=== PATIENT | male | born 1950 | race Caucasian/White ===

== ENCOUNTER 2016-09-12 09:40 | Outpatient (CLI) | payer OTHER ==
[~2016-09-12 09:40] MED LIST: ACETAMINOPHEN 325 MG TABLET PO PRN; HEPARIN 500 UNIT/5 ML SYRINGE FOR CENTRAL LINE IVP PRN; INFLIXIMAB IV ONE; LORATADINE 10 MG TABLET PO PRN; NORMAL SALINE 10 ML SYRINGE FLUSH IVP PRN; SODIUM CHLORIDE 0.9% IV ONE; Sodium Chloride 0.9% 50 ML IV PRN
[2016-09-12] MEDS ORDERED: ACETAMINOPHEN 325 MG TABLET PO ONE (10:19)
[2016-09-12 10:39] LABS: HEMATOCRIT 42.4 % (42.0-52.0); HEMOGLOBIN 14.8 g/dL (14.0-18.0); MEAN CORPUSCULAR HEMOGLOBIN 34.6 PG (27-31); MEAN CORPUSCULAR HGB CONC 34.9 g/dL (33-37); MEAN PLATELET VOLUME 9.3 FL (7.4-12.2); RDW COEFFICIENT OF VARIATION 13.4 % (11.5-14.5); RED BLOOD COUNT 4.28 10^6/uL (4.70-6.10); WHITE BLOOD COUNT 5.49 10^3/uL (4.8-10.8)
[2016-09-12] MEDS: NORMAL SALINE 10 ML SYRINGE FLUSH IVP PRN ×2 (10:45→12:26)
[2016-09-12 10:55] LABS: CREATININE 0.8 mg/dL (0.70-1.50)
[2016-09-12 12:59] VITALS: RESP 14; TEMP 96.4
== END 2016-09-12 12:30 | disposition home or self-care (01) ==
LOC: IV THERAPY 09:40
PROVIDERS: ATTEND Emergency Medicine
DX: M05.79 Rheumatoid arthritis with rheumatoid factor of multiple sites without organ or systems involvement (principal); C61 Malignant neoplasm of prostate
CPT/HCPCS: 82565; 84153; 84450; 85027; 85652; 96365; 96366; 99211; J1745; J7050

== ENCOUNTER → 2016-10-10 | Outpatient (CLI) | payer OTHER | LOC: MMPC 11:11 | PROVIDERS: ATTEND Internal Medicine | DX: C61 Malignant neoplasm of prostate (principal); I10 Essential (primary) hypertension; M06.9 Rheumatoid arthritis, unspecified; F10.10 Alcohol abuse, uncomplicated; I95.1 Orthostatic hypotension; L40.9 Psoriasis, unspecified; R79.89 Other specified abnormal findings of blood chemistry; M54.2 Cervicalgia; Z79.899 Other long term (current) drug therapy | CPT/HCPCS: 99213; G0463 ==

== ENCOUNTER → 2016-10-20 | Outpatient (CLI) | payer OTHER ==
[2016-10-20 07:32] LABS: ASPARTATE AMINO TRANSFERASE 38 IU/L (21-57); BILIRUBIN,TOTAL 0.7 mg/dL (0.3-1.2); BLOOD UREA NITROGEN 14 mg/dL (7-22); BUN/CREATININE RATIO 15.55 (6-20); CALCIUM 9.9 mg/dL (8.7-10.7); CHLORIDE 98 meq/L (98-112); CREATININE 0.9 mg/dL (0.70-1.50); EST GLOMERULAR FILTRATION > 60 (>60 ml/min/1.73m(2)); GLUCOSE 122 mg/dL (78-110); POTASSIUM 4.7 meq/L (3.8-5.2); SODIUM 135 meq/L (135-145); TOTAL PROTEIN 7.6 g/dL (6.1-8.0)
--- NOTE | 2016-10-20 08:58 | DI ---
CT ABD W/WO CN AND PELVIS W/W0,10/20/2016 7:30 AM: Clinical History: Gross hematuria. Previous Exam: June 24, 2015 Findings: Multiple helically acquired CT images are obtained through the abdomen and pelvis before the administ ration of intravenous contrast. Images are also obtained using a split bolus technique although the i mages appear to have been performed during the late venous phase of the second bolus. There is moderate stool noted throughout the colon. There is no evidence of upper tract lesion. There is no hydronephrosis. There are no renal parenchymal stones identified. The liver, gallbladder, spleen, pancreas and adrenals are unremarkable. There is no mesenteric or ret roperitoneal lymphadenopathy. Multiple brachii therapy seeds are noted within the prostate. A few colonic diverticula are noted without evidence of acute diverticulitis. The ureters are normal in course and caliber with orthotopic insertion on the urinary bladder. There is a hypodense area near the left ureterovesicular junction isodense with the urinary bladder wall wa ll measuring 11 x 10 mm. Peripheral vascular calcifications are seen. There is gentle levoscoliosis of the lower lumbar spine. Mild facet hypertrophy is seen as well. There are degenerative changes seen of the hips bilaterally with osteophyte formation. Impression: 1. 11 x 10 mm hypodense area within the left posterior urinary bladder at the ureterovesicular juncti on. This is worrisome for a polyp. There is a possibility with its location near the ureterovesicular junction, that this could represent a ureteral jet causing some turbulence within the contrast altho ugh there is contrast enhancement within the left ureter, and this area would not be expected to be h ypodense. Recommend correlation with cystoscopy.
== END ==
LOC: CT 06:50
PROVIDERS: ATTEND Urology
DX: R31.0 Gross hematuria (principal); R71.8 Other abnormality of red blood cells; I10 Essential (primary) hypertension; C61 Malignant neoplasm of prostate; F10.20 Alcohol dependence, uncomplicated; F17.210 Nicotine dependence, cigarettes, uncomplicated
CPT/HCPCS: 36415; 74178; 80053; 82248; 82607; 84153

== ENCOUNTER 2016-10-23 07:52 | Outpatient (CLI) | payer OTHER ==
[2016-10-23] MEDS ORDERED: SODIUM CHLORIDE 0.9% IV ONE (08:00)
[2016-10-23] MEDS ORDERED: NORMAL SALINE 10 ML SYRINGE FLUSH IVP PRN (08:00)
[2016-10-23] MEDS ORDERED: INFLIXIMAB IV ONE (08:00)
[2016-10-23] MEDS ORDERED: HEPARIN 500 UNIT/5 ML SYRINGE FOR CENTRAL LINE IVP PRN (08:00)
[2016-10-23 08:45] VITALS: RESP 18; TEMP 97.2
== END 2016-10-23 10:45 | disposition home or self-care (01) ==
LOC: IV THERAPY 07:52
PROVIDERS: ATTEND Emergency Medicine
DX: M05.79 Rheumatoid arthritis with rheumatoid factor of multiple sites without organ or systems involvement (principal)
CPT/HCPCS: 96365; 96366; J1745; J7050

== ENCOUNTER → 2016-10-24 | Outpatient (CLI) | payer OTHER ==
--- NOTE | 2016-10-25 09:10 | DI ---
XR CXR 2VW PA/LAT,10/24/2016 4:00 PM: Clinical History: The essential hypertension. Previous Exam: None at this facility. Findings: PA and lateral views of the chest are obtained, and demonstrate clear lungs. The cardiomediastinum an d bony thorax are unremarkable. There is some mild COPD. Impression: Normal chest.
--- NOTE | 2016-10-25 14:39 | DI ---
XR C-SPINE 2-3 VW,10/24/2016 3:59 PM: Clinical History: Neck pain. Previous Exam: None at this facility. Findings: 3 views of the cervical spine are obtained, and demonstrate anatomic alignment without fractures. The re is some uncovertebral joint osteophyte formation. Vertebral body height is preserved. Intervertebral disc height is also preserved. The prevertebral so ft tissues are unremarkable. The lung apices are clear. Impression: Diffuse degenerative changes of the cervical spine otherwise unremarkable.
== END ==
LOC: RAD 15:53
PROVIDERS: ATTEND Internal Medicine
DX: M54.2 Cervicalgia (principal); M06.89 Other specified rheumatoid arthritis, multiple sites; M47.812 Spondylosis without myelopathy or radiculopathy, cervical region; J44.9 Chronic obstructive pulmonary disease, unspecified; I10 Essential (primary) hypertension; Z79.899 Other long term (current) drug therapy; F17.210 Nicotine dependence, cigarettes, uncomplicated
CPT/HCPCS: 71020; 72040

== ENCOUNTER → 2016-10-25 | Outpatient (CLI) | payer OTHER | LOC: MMPC 11:11 | PROVIDERS: ATTEND Internal Medicine | DX: I10 Essential (primary) hypertension (principal); E66.09 Other obesity due to excess calories; L40.9 Psoriasis, unspecified; C61 Malignant neoplasm of prostate; Z23 Encounter for immunization; M06.9 Rheumatoid arthritis, unspecified; F10.10 Alcohol abuse, uncomplicated | CPT/HCPCS: 90656; 99213; G0463; 90670 ==

== ENCOUNTER → 2016-10-31 | Outpatient (CLI) | payer OTHER | LOC: LAB 13:34 | PROVIDERS: ATTEND Internal Medicine | DX: E66.09 Other obesity due to excess calories (principal); F17.210 Nicotine dependence, cigarettes, uncomplicated | CPT/HCPCS: 36415; 80061 ==

== ENCOUNTER 2016-11-09 20:45 | Emergency (ER) | payer OTHER ==
--- NOTE | 2016-11-09 21:04 | PDOC ---
Male Genitourinary Problem HPI - General Chief Complaint: Abdomen Pain Stated Complaint: nOT ABLE TO VOID Date Seen by Provider: 11/09/16 Time Seen by Provider: 21:00 Source: POSITIVE: Patient Exam Limitations: POSITIVE: No limitations Nurse's Notes Reviewed & Considered: Yes - History of Present Illness Initial Comments: Patient comes in today with urinary retention. Today patient had a TURP for a bladder cancer. Now with inability to void. He denies any nausea vomiting or diarrhea, no fever chills or sweats, no shortness of breath, chest pain or, cough. Body Location Affected: REPORTS: Abdomen Timing: REPORTS: Gradual Duration: <24 hours Severity: Moderate Quality: REPORTS: Fullness, "Pain", Throbbing Context: REPORTS: Recent Surgery Sexual History: REPORTS: Non-Contributory Associated Symptoms: REPORTS: Unable to Urinate Similar Symptoms Previously: No Recent Care Received: REPORTS: Treated by MD, Surgery - Patient Home Medications Home Medications: Home Medications Fluticasone Propionate [Flonase] 2 spr INASL QD #3 spr 12/22/13 Lisinopril 20 mg PO QD #90 tab 10/15/15 Tamsulosin HCl [Flomax] 1 cap PO DAILY #90 cap 04/11/16 Judah/Polymyx B Sulf/Dexameth [Maxitrol Eye Drops] 1 drop EACH EYE TID #1 bottle 05/23/16 Duloxetine HCl [Cymbalta] 60 mg PO DAILY #90 capsule 08/14/16 Methotrexate Sodium [Trexall] 10 mg PO WEEKLY tab 10/18/16 Nicotine [Nicotine Patch] 21 mg TRANSDERM DAILY patch 10/18/16 inFLIXimab Inj [Remicade Inj] 5 mgkg IV q6wk vial 10/18/16 Calcium Carbonate [Caltrate 600] 600 gm PO DAILY 10/23/16 Multivitamin [Multi-Vitamin Daily] 1 tab PO DAILY 10/23/16 [place]-3 Fatty Acids [Fish Oil] 300 mg PO DAILY 10/23/16 Ezetimibe [Zetia] 1 tab-cap PO DAILY #90 tab-cap 11/07/16 - Patient Allergies Allergies/Adverse Reactions: Allergies Allergy/AdvReac Type Severity Reaction Status Date / Time No Known Drug Allergies Allergy NOT Verified 11/09/16 21:39 APPLICABLE Past Medical History - heen HEENT History: Cataracts Cardiovascular History: Hypertension Respiratory History: Denies History Gastrointestinal History: GERD Genitourinary History: Denies History Endocrine History: Denies History Musculoskeletal History: Arthritis, Rheumatoid Arthritis Neurological History:  Additional Neurological History: PT STATES HE HAS BEEN PASSING OUT. 4 WEEKS AGO Blood Disorders: Denies History Psychiatric History: Depression History of Sexually Transmitted Diseases: No Cancer Treatment / Date(s) of Treatment: SEED IMPLANT History of MDRO: Yes Other Type of MDRO: mrsa 4 years ago, negative mrsa tests sept 15 History of Other Communicable Diseases: No Alcohol Use: Occasionally Substance Use Type: Marijuana Previous Surgical History: Yes Type / Date of Surgery: COLONOSCOPY/ INGUINAL HERNIA/ PROSTATE SEED IMPLANTS Anesthesia Reactions: No Malignant Hyperthermia: No Additional Family History: MOTHER CA. FATHER CA ROS - Limitations ROS Limitations: No Limitations Constitution: REPORTS: Denies Symptoms Cardiovascular: REPORTS: Denies Cardiac Symptoms Respiratory: REPORTS: Denies Resp Symptoms Neurological: REPORTS: Denies Neuro Symptoms Gastrointestinal: REPORTS: Abdominal Pain Endocrine: REPORTS: Denies Symptoms Musculoskeletal: REPORTS: Denies MS Symptoms Genitourinary: REPORTS: Difficulty Urinating Eyes: REPORTS: Denies Symptoms ENT: REPORTS: Denies Symptoms Skin: REPORTS: Denies Skin Symptoms Lympathic: REPORTS: Denies Lympathic Symptoms Immunologic: POSITIVE: Denies Symptoms Psychiatric: POSITIVE: Denies Psych Symptoms Male Genitourinary Exam - General Appearance General Appearance: POSITIVE: Alert, Cooperative, No Acute Distress, No Evidence of Trauma - Abdomen Abdomen: Soft: (All Quadrants), Normal Bowel Sounds: (All Quadrants), Tenderness Noted: (RLQ), (LLQ) - Genital / Rectal Genitals: POSITIVE: Normal Inspection - HEENT HEENT: POSITIVE: Head Inspection Nml, Eyes Inspection Nml, Ears Inspection Nml, Nose Inspection Nml, PERRL, EOMI - Neck Neck: POSITIVE: Normal Inspection - Respiratory Respiratory: POSITIVE: No Respiratory Distress, Breath Sounds Normal, Chest Non- Tender - Cardiovascular Cardiovascular: POSITIVE: Regular Rate and Rhythm, Heart Sounds Normal - Extremities Extremity: Non-Tender: (All Extremities), Normal ROM: (All Extremities), Normal Inspection: (All Extremities) - Neurological / Psychological Neurological: POSITIVE: Affect Apporpriate, Oriented X3 - Skin Skin: POSITIVE: Intact, Normal For Race, Warm, Dry, No Rash Male Genitourinary Progress - Patient's Progress Pain Medication Addressed: POSITIVE: No Re-Examine Time:: 22:11 Status: POSITIVE: Improved MDM / ED Course: Patient seen, soto placed. Patient with significant relief. Assessment: Urinary retention Plan:D/C home, soto to leg bag. Followup with urology tomorrow. - Consult Counseled: POSITIVE: Patient, RE: DX, RE: Need for F/U Patient Care Time - Estimated PCT Patient Care Time (In Minutes): 15 Vital Signs - VS Reviewed Vital Signs Reviewed: Yes Discharge Clinical Impression: Acute retention of urine Discharge Disposition: Discharged to Home Condition: Stable Patient Instructions Given at Discharge: Urinary Retention in Men (ED)
[2016-11-09] MEDS ORDERED: LIDOCAINE HCL 2 % 10 ML JELLY URO-JECT TOPICAL ONE ×2 (21:15)
[2016-11-09 23:52] VITALS: RESP 22; TEMP 97.1
== END 2016-11-09 22:36 | disposition home or self-care (01) ==
LOC: ER 20:45
DX: R33.9 Retention of urine, unspecified (principal); Z98.890 Other specified postprocedural states
CPT/HCPCS: 99282

== ENCOUNTER → 2016-12-11 | Outpatient (CLI) | payer OTHER ==
[2016-12-11 10:52] LABS: BILIRUBIN,URINE NEGATIVE (NEG); COLOR,URINE YELLOW; GLUCOSE, URINE (UA) NEGATIVE (NEG); NITRATE,URINE NEGATIVE (NEG); OCCULT BLOOD,URINE SMALL (NEG); PROTEIN,URINE NEGATIVE (NEG); UROBILINOGEN,URINE 0.2 mg/dL (0.2)
[2016-12-11 10:56] LABS: CLARITY,URINE CLEAR (CLEAR)
[2016-12-11 11:08] LABS: RBC,URINE 0-3 /hpf; SQUAMOUS EPITHELIAL CELL,UR RARE; URINE SAMPLE TYPE CLEAN CATCH URINE; WBC,URINE 0-3
== END ==
LOC: LAB 10:12
PROVIDERS: ATTEND Urology
DX: C67.2 Malignant neoplasm of lateral wall of bladder (principal)
CPT/HCPCS: 81001

== ENCOUNTER → 2016-12-18 | Outpatient (CLI) | payer OTHER ==
[2016-12-18 11:03] LABS: BILIRUBIN,URINE NEGATIVE (NEG); COLOR,URINE YELLOW; GLUCOSE, URINE (UA) NEGATIVE (NEG); NITRATE,URINE NEGATIVE (NEG); PH,URINE 6.5 (5.0-8.5); PROTEIN,URINE NEGATIVE (NEG); UROBILINOGEN,URINE 0.2 mg/dL (0.2)
[2016-12-18 11:16] LABS: CLARITY,URINE CLEAR (CLEAR); OCCULT BLOOD,URINE TRACE (NEG)
[2016-12-18 11:20] LABS: URINE SAMPLE TYPE VOIDED SPECIMEN
[2016-12-18 11:21] LABS: BACTERIA,URINE FEW; URINE CASTS RARE; WBC,URINE 18-20
== END ==
LOC: LAB 10:24
PROVIDERS: ATTEND Urology
DX: C67.2 Malignant neoplasm of lateral wall of bladder (principal)
CPT/HCPCS: 81001

== ENCOUNTER → 2016-12-25 | Outpatient (CLI) | payer OTHER ==
[2016-12-25 14:51] LABS: BILIRUBIN,URINE NEGATIVE (NEG); COLOR,URINE YELLOW; GLUCOSE, URINE (UA) NEGATIVE (NEG); NITRATE,URINE NEGATIVE (NEG); OCCULT BLOOD,URINE MODERATE (NEG); PROTEIN,URINE NEGATIVE (NEG); UROBILINOGEN,URINE 0.2 EU/dL (0.2)
[2016-12-25 14:58] LABS: BACTERIA,URINE FEW; CLARITY,URINE CLEAR (CLEAR); URINE SAMPLE TYPE VOID
== END ==
LOC: LAB 14:35
PROVIDERS: ATTEND Urology
DX: C67.2 Malignant neoplasm of lateral wall of bladder (principal)
CPT/HCPCS: 81001

== ENCOUNTER → 2017-01-01 | Outpatient (CLI) | payer OTHER ==
[2017-01-01 14:27] LABS: BILIRUBIN,URINE NEGATIVE (NEG); COLOR,URINE YELLOW; GLUCOSE, URINE (UA) NEGATIVE (NEG); NITRATE,URINE NEGATIVE (NEG); OCCULT BLOOD,URINE SMALL (NEG); PH,URINE 6.5 (5.0-8.5); PROTEIN,URINE 30 mg/dl (NEG); UROBILINOGEN,URINE 0.2 mg/dL (0.2)
[2017-01-01 14:37] LABS: CLARITY,URINE CLEAR (CLEAR)
[2017-01-01 15:52] LABS: SQUAMOUS EPITHELIAL CELL,UR RARE; URINE SAMPLE TYPE CLEAN CATCH URINE
[2017-01-01 15:53] LABS: BACTERIA,URINE RARE
== END ==
LOC: LAB 14:02
PROVIDERS: ATTEND Urology
DX: C67.2 Malignant neoplasm of lateral wall of bladder (principal)
CPT/HCPCS: 81001

== ENCOUNTER → 2017-01-08 | Outpatient (CLI) | payer OTHER ==
[2017-01-08 13:53] LABS: BILIRUBIN,URINE NEGATIVE (NEG); COLOR,URINE YELLOW; GLUCOSE, URINE (UA) NEGATIVE (NEG); NITRATE,URINE NEGATIVE (NEG); OCCULT BLOOD,URINE Trace-intact (NEG); PROTEIN,URINE NEGATIVE (NEG); UROBILINOGEN,URINE 0.2 mg/dL (0.2)
[2017-01-08 14:00] LABS: CLARITY,URINE CLEAR (CLEAR)
[2017-01-08 14:12] LABS: SQUAMOUS EPITHELIAL CELL,UR RARE; URINE SAMPLE TYPE CLEAN CATCH URINE; WBC,URINE 0-3
== END ==
LOC: LAB 12:47
PROVIDERS: ATTEND Urology
DX: C67.2 Malignant neoplasm of lateral wall of bladder (principal)
CPT/HCPCS: 81001

== ENCOUNTER → 2017-01-15 | Outpatient (CLI) | payer OTHER ==
[2017-01-15 11:48] LABS: BILIRUBIN,URINE NEGATIVE (NEG); COLOR,URINE YELLOW; GLUCOSE, URINE (UA) NEGATIVE (NEG); NITRATE,URINE NEGATIVE (NEG); OCCULT BLOOD,URINE Trace-intact (NEG); PROTEIN,URINE NEGATIVE (NEG); UROBILINOGEN,URINE 0.2 mg/dL (0.2)
[2017-01-15 11:55] LABS: CLARITY,URINE CLEAR (CLEAR)
[2017-01-15 11:58] LABS: RBC,URINE 0-3 /hpf; SQUAMOUS EPITHELIAL CELL,UR RARE; URINE SAMPLE TYPE CLEAN CATCH URINE
== END ==
LOC: LAB 11:22
PROVIDERS: ATTEND Urology
DX: C67.2 Malignant neoplasm of lateral wall of bladder (principal); I10 Essential (primary) hypertension
CPT/HCPCS: 81001

== ENCOUNTER → 2017-01-16 | Outpatient (CLI) | payer OTHER ==
[2017-01-17 06:47] LABS: CHOL/HDL RATIO 3.4 RATIO (0-4.0); LDL CHOLESTEROL,CALCULATED 68.4 mg/dL
== END ==
LOC: LAB 09:33
PROVIDERS: ATTEND Internal Medicine
DX: I10 Essential (primary) hypertension (principal); R89.8 Other abnormal findings in specimens from other organs, systems and tissues
CPT/HCPCS: 36415; 80061; 80076

== ENCOUNTER → 2017-01-24 | Outpatient (CLI) | payer OTHER | LOC: MMPC 11:11 | PROVIDERS: ATTEND Internal Medicine | DX: C67.2 Malignant neoplasm of lateral wall of bladder (principal); C61 Malignant neoplasm of prostate; I10 Essential (primary) hypertension; F32.9 Major depressive disorder, single episode, unspecified; E78.2 Mixed hyperlipidemia; L98.9 Disorder of the skin and subcutaneous tissue, unspecified; F17.219 Nicotine dependence, cigarettes, with unspecified nicotine-induced disorders | CPT/HCPCS: 99214; G0463 ==

== ENCOUNTER 2017-03-10 11:40 | Emergency (ER) | payer OTHER ==
[2017-03-10] MEDS ORDERED: Sodium Chloride 0.9% 1,000 ML PRIMARY IV ONE (12:08)
[2017-03-10] MEDS ORDERED: NORMAL SALINE 10 ML SYRINGE FLUSH IVP PRN (12:08)
--- NOTE | 2017-03-10 12:11 | EKG ---
[address] [address] Measurements Intervals [place] Rate: 86 P: 23 MA: 187 QRS: 33 QRSD: 94 T: 56 QT: 366 QTc: 409 Interpretive Statements SINUS RHYTHM No previous ECG available for comparison Electronically Signed On 03-13-17 15:29:32 MDT by Rod Campos MD [email or web address]
--- NOTE | 2017-03-10 12:22 | PDOC ---
Dizziness HPI - General Chief Complaint: Neurological Complaints Stated Complaint: lighthead/eye pain/ stiff neck Date Seen by Provider: 03/10/17 Time Seen by Provider: 12:10 Source: POSITIVE: Patient Exam Limitations: POSITIVE: No limitations Nurse's Notes Reviewed & Considered: Yes - History of Present Illness Initial Comments: The patient is a 67-year-old male who presents to the emergency department with the chief complaint of lightheadedness. Patient states that for quite some time (as much as a year) he has been having some episodes of lightheadedness. This seems to been worse over the past several days. He states that he generally feels lightheaded when he first stands up. He has not had any recent episodes of syncope. He did have an episode of cramping pain across his chest yesterday however none today. He states that yesterday he did not feel well in general as well and had decreased appetite. He denies any associated headache, abdominal pain, nausea or vomiting or change in bowel movements. He was recently treated with BCG treatments for bladder cancer. He also has a history of prostate cancer. Because of this he has chronic urgency and frequency as well as some urinary incontinence. He states that his urinary symptoms have not changed recently. He denies any fevers however he states he has been having some hot flashes which she attributes to a Lupron shot that he received a month or so back. He also reports that he is in the process of trying to quit smoking. He is using nicotine gum as well as nicotine patch. He reports that he has a history of heavy drinking however he states he has cut way back although he is not very specific about how much he currently drinks. He states he does not drink every day. He is very shaky at times and the person with him here in the ER states that he frequently drops things. - Patient Home Medications Home Medications: Home Medications Fluticasone Propionate [Flonase] 2 spr INASL QD #3 spr 12/22/13 Judah/Polymyx B Sulf/Dexameth [Maxitrol Eye Drops] 1 drop EACH EYE TID #1 bottle 05/23/16 Duloxetine HCl [Cymbalta] 60 mg PO DAILY #90 capsule 08/14/16 Nicotine [Nicotine Patch] 21 mg TRANSDERM DAILY patch 10/18/16 Calcium Carbonate [Caltrate 600] 600 gm PO DAILY 10/23/16 Multivitamin [Multi-Vitamin Daily] 1 tab PO DAILY 10/23/16 [place]-3 Fatty Acids [Fish Oil] 300 mg PO DAILY 10/23/16 Prednisone 1 tab PO QD tab 01/04/17 Methotrexate Sodium [Methotrexate] 5 tab PO WEEKLY tab 01/24/17 Tamsulosin HCl [Flomax] 2 cap PO DAILY #90 cap 01/24/17 Ezetimibe [Zetia] 1 tab-cap PO DAILY #90 tab-cap 02/22/17 Mirabegron [Myrbetriq] 25 mg PO DAILY 03/10/17 - Patient Allergies Allergies/Adverse Reactions: Allergies Allergy/AdvReac Type Severity Reaction Status Date / Time No Known Drug Allergies Allergy NOT Verified 03/10/17 12:02 APPLICABLE Past Medical History - heen HEENT History: Cataracts Cardiovascular History: Hypertension Respiratory History: Denies History Gastrointestinal History: GERD Genitourinary History: Denies History Additional Genitourinary History: Hx of Prostate Cancer with resection. Hx of Bladder Cancer. Endocrine History: Denies History Musculoskeletal History: Arthritis, Rheumatoid Arthritis Neurological History:  Additional Neurological History: PT STATES HE HAS BEEN PASSING OUT. 4 WEEKS AGO Blood Disorders: Denies History Psychiatric History: Depression History of Sexually Transmitted Diseases: No Cancer History: Other (please comment) Cancer Treatment / Date(s) of Treatment: SEED IMPLANT History of MDRO: Yes Other Type of MDRO: mrsa 4 years ago, negative mrsa tests may 18 History of Other Communicable Diseases: No Alcohol Use: Occasionally Substance Use Type: Marijuana Previous Surgical History: Yes Type / Date of Surgery: COLONOSCOPY/ INGUINAL HERNIA/ PROSTATE SEED IMPLANTS Anesthesia Reactions: No Malignant Hyperthermia: No Additional Family History: MOTHER CA. FATHER CA Past Medical History Reviewed: Reviewed - No Changes ROS - Limitations ROS Limitations: No Limitations Constitution: REPORTS: Fever (Hot flashes). DENIES: Chills Cardiovascular: REPORTS: Chest Pain (An episode of cramping pain across his chest yesterday, no known history of heart disease), Blood Pressure Problem ( Previously was treated for hypertension, has not been on blood pressure medications for some time now). DENIES: Heart Palpitations, Edema Respiratory: REPORTS: Denies Resp Symptoms. DENIES: Cough Non Productive, Cough Productive, Shortness Of Breath Neurological: REPORTS: Dizziness. DENIES: Headache, Numbness, Weakness Gastrointestinal: DENIES: Abdominal Pain, Nausea, Vomitting, Diarrhea, Black Stools, Bloody Stools Endocrine: REPORTS: Fatigue Musculoskeletal: DENIES: Lower Extremity Swelling Genitourinary: REPORTS: Other (Patient has ongoing urgency and frequency as well as dribbling, he reports that he has to squat to urinate) Eyes: REPORTS: Denies Symptoms ENT: REPORTS: Denies Symptoms Skin: DENIES: Rash Dizziness PE - General Appearance General Appearance: POSITIVE: No Acute Distress, Alert - HEENT HEENT: POSITIVE: Head Inspection Nml, Eyes Inspection Nml, Ears Inspection Nml, Pharynx Inspect. Nml, PERRL, EOMI - Neck Neck: POSITIVE: Supple - Respiratory Respiratory: POSITIVE: No Respiratory Distress, Breath Sounds Normal - Cardiovascular Cardiovascular: POSITIVE: Regular Rate & Rhythm, No Murmur Peripheral Pulses: Dorsalis-pedis (R): 2+, Dorsalis-pedis (L): 2+ - Abdomen Abdomen: Soft: (All Quadrants), No Guarding: (All Quadrants), No Rebound: (All Quadrants), No Distention: (All Quadrants) - Skin Skin: POSITIVE: Intact, No Rash - Extremities Extremity: Normal ROM: (All Extremities), Normal Inspection: (All Extremities) - Neuro/Psych Neuro/Psych: POSITIVE: Alert, Mood Appropriate, Normal Speech, Normal Cognition Cranial Nerves: POSITIVE: Normal As Tested Sensorimotor: POSITIVE: No Motor Deficits, No Sensory Deficits, Other (No focal neurologic deficit) Dizziness Progress - Results Reviewed by me Lab Results Reviewed: Yes Lab Results:: Laboratory Results 03/10/17 03/10/17 03/10/17 Range/Units 11:55 12:08 12:10 WBC 7.60 (4.8-10.8) 10^3/uL RBC 4.39 L (4.70-6.10) 10^6/uL Hgb 14.1 (14.0-18.0) g/dL Hct 40.9 L (42.0-52.0) % MCV 93.2 H (80-90) FL MCH 32.1 H (27-31) PG MCHC 34.5 (33-37) g/dL RDW Std Deviation 46.9 (39-50) fL RDW Coeff of [place] 14.2 (11.5-14.5) % Plt Count 228 (140-350) 10*3/uL MPV 9.0 (7.4-12.2) FL Immature Gran % (Auto) 0.3 (0-5) % Neut % (Auto) 68.3 (50-80) % Lymph % (Auto) 21.4 (10-50) % [place] % (Auto) 7.9 (5-15) % Eos % (Auto) 1.3 (0-8) % Baso % (Auto) 0.8 (0-1) % Immature Gran # (Auto) 0.02 10*3/UL Neut # (Auto) 5.19 10*3/UL Lymph # (Auto) 1.63 10*3/uL [place] # (Auto) 0.60 (0.3-0.8) 10*3/UL Eos # (Auto) 0.10 10*3/UL Baso # (Auto) 0.06 10*3/UL WBC Morphology Comment Normal morphology (NORM) Plt Morphology Comment Normal morphology (NORM) RBC Morph Comment Normal morphology (NORM) Sodium 137 (135-145) meq/L Potassium 3.7 L (3.8-5.2) meq/L Chloride 105 (98-112) meq/L Carbon Dioxide 22 L (23-33) meq/L Anion Gap 10 (5-20) BUN 18 (7-22) mg/dL Creatinine 1.0 (0.70-1.50) mg/dL Estimated GFR > 60 (>60 ml/min/1.73m(2)) BUN/Creatinine Ratio 18.00 (6-20) Glucose 142 H (78-110) mg/dL Calculated Osmolality 287.0 (267-292) mOsm/kg Lactic Acid 2.1 (0.70-2.10) MMOL/L Calcium 9.0 (8.7-10.7) mg/dL Magnesium 2.0 (1.6-2.4) mg/dL Total Bilirubin 0.8 (0.3-1.2) mg/dL AST 56 (21-57) IU/L ALT 86 H (21-72) IU/L Alkaline Phosphatase 79 (38-126) IU/L Troponin I < 0.012 (< 0.040) ng/mL C-Reactive Protein 1.0 H (0.0-0.9) mg/dL Total Protein 7.4 (6.1-8.0) g/dL Albumin 4.0 (3.5-4.8) g/dL Globulin 3.3 (2.50-4.10) g/dL Albumin/Globulin Ratio 1.20 L (1.3-2.0) mg/g Ur Collection Type Clean catch urine Urine Color Yellow Urine Clarity Clear (CLEAR) Urine pH 7.5 (5.0-8.5) Ur Specific [place] 1.015 (1.005-1.030) Urine Protein Negative (NEG) mg/dl Urine Glucose (UA) Negative (NEG) mg/dL Urine Ketones Negative (NEG) Urine Occult Blood Negative (NEG) Urine Nitrate Negative (NEG) Urine Bilirubin Negative (NEG) Urine Urobilinogen 1.0 (0.2) EU/dL Ur Leukocyte Esterase Negative (NEG) Ur Culture Indicated? Culture not set Serum Alcohol < 10 (0-10) mg/dL EKG Interpreted/Reviewed By Me:: Yes EKG Interpretation:: POSITIVE: Normal Sinus Rhythm, Normal Rate, Normal Intervals, Normal QRS, Normal ST/T - Patient's Progress MDM / ED Course: The patient was hypotensive on initial blood pressure reading with a blood pressure in the 70s. When he stood up at the side of the bed he became very lightheaded however his blood pressure actually went up into the 100 systolic, he did have a reason pulse however from the 90s into the 100s. An IV was established and blood cultures/lactate were drawn with initial IV start. He received a 1 L bolus of normal saline. Initial EKG shows normal sinus rhythm with no acute ST segment or T-wave changes. After administration of fluids the patient's blood pressure came up in the 100s and at one point was 130/70. He was feeling much better and was able to stand up without any further dizziness. His lab work is all essentially unremarkable with a normal hemoglobin and normal white count, urinalysis does not reveal any evidence of infection. At this point the etiology of his dizziness and low blood pressure is not 100% clear. He does report that his Flomax dose was increased fairly recently from 0.4 mg to 0.8 mg daily. This certainly could cause some degree of hypotension and orthostatic hypotension. In addition he has been using a nicotine patch as well as nicotine gum in an attempt to quit smoking. He also continues to smoke cigarettes. It is possible that this nicotine use could be contributing to his symptoms as well. The patient is advised to decrease his Flomax to 0.4 mg daily. He was advised to change positions and stand slowly. He was advised to return to the emergency room if he develops any worsening or change in symptoms. He is advised to follow-up with his primary care provider next week. - Consult Counseled: POSITIVE: Patient, RE: Lab Results, RE: DX, RE: Need for F/U Patient Care Time - Estimated PCT Patient Care Time (In Minutes): 35 Vital Signs - Recent Vital Signs Vital Signs: Vital Signs (Last 8 hours) Temp Pulse Resp BP Pulse Ox 03/10/17 12:06 96.1 F L 105 H 18 92/62 95 - VS Reviewed Vital Signs Reviewed: Yes Discharge Clinical Impression: Near syncope, Hypotension, Orthostatic hypotension Discharge Disposition: Discharged to Home Condition: Stable Patient Instructions Given at Discharge: Near Syncope (ED) Additional Instructions: Your blood pressure was low on arrival and seems to have improved at this point. Your blood work and EKG, urinalysis was all essentially normal. It is thought that the increased dose of Flomax may be contributing some to your lightheadedness especially the lightheadedness that is worse when standing. Recommend cutting the dose back to 0.4 mg at bedtime. Continue all other medications as previously prescribed. Also monitor to see if symptoms are related to nicotine consumption. It is generally not a good idea to use nicotine gum, nicotine patch and smoke as this can also cause some dizziness, nausea and other symptoms. Recommend returning to the emergency room if any worsening or change in symptoms. Call on Sunday to schedule follow-up with primary care. Follow Up With: JACKSON BLACKMAN [Primary Care Provider] -
[2017-03-10 12:30] LABS: BASOPHILS # (AUTO) 0.06 10*3/UL; BASOPHILS % (AUTO) 0.8 % (0-1); EOSINOPHILS % (AUTO) 1.3 % (0-8); HEMATOCRIT 40.9 % (42.0-52.0); HEMOGLOBIN 14.1 g/dL (14.0-18.0); LYMPHOCYTES # (AUTO) 1.63 10*3/uL; MEAN CORPUSCULAR HEMOGLOBIN 32.1 PG (27-31); MEAN CORPUSCULAR HGB CONC 34.5 g/dL (33-37); MEAN CORPUSCULAR VOLUME 93.2 FL (80-90); MONOCYTES % (AUTO) 7.9 % (5-15); NEUTROPHILS # (AUTO) 5.19 10*3/UL; NEUTROPHILS % (AUTO) 68.3 % (50-80); PLATELET MORPHOLOGY COMMENT NORMAL MORPHOLOGY (NORM); RBC MORPHOLOGY COMMENT NORMAL MORPHOLOGY (NORM); RED BLOOD COUNT 4.39 10^6/uL (4.70-6.10); WBC MORPHOLOGY COMMENT NORMAL MORPHOLOGY (NORM)
[2017-03-10 12:42] LABS: BLOOD UREA NITROGEN 18 mg/dL (7-22); EST GLOMERULAR FILTRATION > 60 (>60 ml/min/1.73m(2))
[2017-03-10 12:43] VITALS: RESP 18; TEMP 96.1
[2017-03-10 13:29] LABS: BILIRUBIN,URINE NEGATIVE (NEG); CLARITY,URINE CLEAR (CLEAR); COLOR,URINE YELLOW; GLUCOSE, URINE (UA) NEGATIVE (NEG); NITRATE,URINE NEGATIVE (NEG); OCCULT BLOOD,URINE NEGATIVE (NEG); PH,URINE 7.5 (5.0-8.5); PROTEIN,URINE NEGATIVE (NEG); URINE SAMPLE TYPE CLEAN CATCH URINE
== END 2017-03-10 14:10 | disposition home or self-care (01) ==
LOC: ER 11:40
DX: R55 Syncope and collapse (principal); I95.9 Hypotension, unspecified; I95.1 Orthostatic hypotension; R42 Dizziness and giddiness; Z85.46 Personal history of malignant neoplasm of prostate
CPT/HCPCS: 80053; 80320; 81003; 83605; 83735; 84484; 85025; 86140; 93005; 93010; 96360; 99283; J7030

== ENCOUNTER → 2017-03-20 | Outpatient (CLI) | payer OTHER ==
--- NOTE | 2017-03-20 09:09 | DI ---
MRI BRAIN SCAN WITHOUT AND WITH IV CONTRAST, 03/20/2017 7:45 AM: Clinical History: Vertigo. Previous Exam: 10/08/2015. Sequences: Axial and sagittal T1 pre contrast and axial and coronal post contrast; axial T2 and FLAIR . Diffusion weighted images with ADC mapping are also performed. Contrast Dose: 20 mL of ProHance (279.3 mg/mL). The 4th, 3rd, and lateral ventricles are of normal size, shape, position, and contour for this patien t's age. As previously noted, there are bilateral small focal 2-3 mm hyperintensities in the white ma tter of the centrum semiovale extending to the vertex. The pattern is unchanged. There is no perivent ricular white matter hyperintensity that typically is associated with small vessel ischemic disease. The exact etiology is uncertain, but ischemia is still a possibility. There are no abnormally enhanci ng lesions. There is no cerebellar pontine angle mass in the seventh and eighth nerves are well visua lized on all sequences through the internal auditory canals and no discrete tumor mass is appreciated . There is mild cerebral and cerebellar atrophy. Diffusion weighted imaging with ADC mapping is ada l. There are no extracerebral mantels or shift of the midline structures. The paranasal sinuses are n ormal. Readin. There is no evidence of a cerebellar pontine angle mass. The slices through the seventh and eight h nerves in both internal auditory canals show no gross abnormality. No abnormally enhancing lesions are identified. 2. There are multiple bilateral punctate hyperintensities in the range between 2-3 mm that have not changed. There are located in the white matter predominately in the centrum semiovale and extending t o the vertex approximating the watershed territory. No periventricular white matter hyperintensities are seen, but a small hyperintensities in the centrum semiovale still may be related to small vessel ischemic disease. 3. There is mild cerebellar and cerebral atrophy. Diffusion weighted imaging with ADC mapping is nor mal. 4. Overall, there has been no significant interval change.
--- NOTE | 2017-03-20 09:23 | DI ---
DUPLEX COLOR DOPPLER CAROTID ULTRASOUND, 03/20/2017 7:45 AM: Clinical History: Syncope. Previous Exam: None at this facility. Technique: 2D real time imaging is supplemented with duplex color doppler ultrasound imaging. RIGHT CAROTID ARTERY: 2D real time imaging of the right carotid system shows minimal intimal thickening of the right common carotid artery with minimal noncalcified plaques in the carotid bulb and at the origins of the left external and internal carotid arteries. Peak systolic velocities through the right common carotid, th e external carotid, and the internal carotid are 123 cm/s, 118 cm/s, and 62 cm/s, respectively. All v alues correspond to diameter stenoses of 0-49%. LEFT CAROTID ARTERY: 2D real time imaging of the left carotid system shows minimal intimal thickening of the left common c arotid artery with small calcified plaques in the carotid bulb. There are minimal noncalcified plaque s in the proximal left internal and external carotid arteries. Peak systolic velocities through the l eft common carotid, the external carotid, and the internal carotid are 101 cm/s, 114 cm/s, and 98 cm/ s, respectively. All values correspond to diameter stenoses of 0-49%. VERTEBRAL ARTERIES: There is antegrade flow through both vertebral arteries Cardiac rhythm is regular. The heart rate ran ged between 53-78 beats per minute and was regular. Peak systolic velocities through the visualized p ortions of the right and left vertebral arteries are 21 cm/s and 43 cm/s, respectively. Both values c orrespond to diameter stenoses of 0-49%. Readin. There is no hemodynamically significant stenosis in either carotid system. 2. There is antegrade flow through both vertebral arteries. Cardiac rhythm is regular and ranges bet ween 58-78 beats per minute during this exam.
== END ==
LOC: US 07:42
PROVIDERS: ATTEND Internal Medicine
DX: C61 Malignant neoplasm of prostate (principal); M06.9 Rheumatoid arthritis, unspecified; R25.1 Tremor, unspecified; R55 Syncope and collapse; F17.209 Nicotine dependence, unspecified, with unspecified nicotine-induced disorders
CPT/HCPCS: 36415; 70553; 84153; 93880